=== PATIENT | female | born 1980 | race African-American/Black ===

== ENCOUNTER 2021-10-20 08:33 | Emergency (ER) | payer OTHER ==
[~2021-10-20] VITALS: Ht 165.1 cm; Wt 95.8 kg
[2021-10-20] MEDS ORDERED: IV NORMAL SALINE 1000ML BAG 1,000 ML IV ONE (09:30)
[2021-10-20] MEDS ORDERED: ONDANSETRON PF 4 MG/2 ML VIAL. IVP ONE (09:30)
[2021-10-20] MEDS ORDERED: fentaNYL PF VIAL 100 MCG/2 ML VIAL IVP ONE (09:30)
--- NOTE | 2021-10-20 09:54 | PHYS DOC ---
Past Medical History Past Medical History: No Pertinent History Past Surgical History: Tubal ligation Additional Past Surgical Histo: BACK SRGERY Alcohol Use: None Drug Use: None General Adult EDM: Chief Complaint: ABDOMINAL PAIN HPI: HPI: Patient is a 41-year-old female that presents today with lower abdominal pain. Patient states the pain has been ongoing for approximately 1 month, patient states that she had not had a period in over 12 years and starting September 142021 she had a 5-day long menstrual cycle, and since that time she has had lower abdominal pain and a sensation that something is coming out of her vagina. Patient denies any chances states that her tubes are tied and she has not had any sexual contact in quite some time, she states she has not seen a BUSINESS OBJECTS for a number of years and she does not know why she has not had a period for 12 years. Patient is a 4 para 5. Patient does state that she has nausea with the symptoms and she is also had some diarrhea as well. Patient states her first menstrual cycle was at age 14. Review of Systems: Review of Systems: Constitutional: Denies fever or chills. [] Eyes: Denies change in visual acuity. [] HENT: Denies nasal congestion or sore throat. [] Respiratory: Denies cough or shortness of breath. [] Cardiovascular: Denies chest pain or edema. [] GI/BUSINESS OBJECTS: abdominal pain, nausea, diarrhea. Denies vaginal bleeding, vaginal discharge [] : Denies dysuria. [] Musculoskeletal: Denies back pain or joint pain. [] Integument: Denies rash. [] Neurologic: Denies headache, focal weakness or sensory changes. [] Endocrine: Denies polyuria or polydipsia. [] Lymphatic: Denies swollen glands. [] Psychiatric: Denies depression or anxiety. [] Heart Score: C/O Chest Pain: No Risk Factors: Risk Factors: DM, Current or recent (<one month) smoker, HTN, HLP, family history of CAD, obesity. Risk Scores: Score 0 - 3: 2.5% MACE over next 6 weeks - Discharge Home Score 4 - 6: 20.3% MACE over next 6 weeks - Admit for Clinical Observation Score 7 - 10: 72.7% MACE over next 6 weeks - Early Invasive Strategies Current Medications: Current Medications Medications (Trade) Dose Ordered Sig/Blade Start Time Stop Time Status Last Admin Dose Admin Fentanyl Citrate (Fentanyl 2ml Vial) 50 mcg 1X ONCE 10/20/21 09:30 10/20/21 09:42 DC Ondansetron HCl (Zofran) 4 mg 1X ONCE 10/20/21 09:30 10/20/21 09:42 DC Sodium Chloride 1,000 ml @ 999 mls/hr 1X ONCE 10/20/21 09:30 10/20/21 10:30 Allergies: Allergies: Allergies Coded Allergies Type Severity Reaction Last Updated Verified No Known Drug Allergies 10/20/21 No Physical Exam: PE: Constitutional: Well developed, well nourished, no acute distress, non-toxic appearance. [] HENT: Normocephalic, atraumatic, bilateral external ears normal, oropharynx moist, no oral exudates, nose normal. [] Eyes: PERRLA, EOMI, conjunctiva normal, no discharge. [] Neck: Normal range of motion, no tenderness, supple, no stridor. [] Cardiovascular:Heart rate regular rhythm, no murmur [] Lungs & Thorax: Bilateral breath sounds clear to auscultation [] Abdomen: Bowel sounds normal, soft, no masses, no pulsatile masses, tenderness with lower abdominal[] Skin: Warm, dry, no erythema, no rash. [] Back: No tenderness, no CVA tenderness. [] Extremities: No tenderness, no cyanosis, no clubbing, ROM intact, no edema. [] Neurologic: Alert and oriented X 3, normal motor function, normal sensory function, no focal deficits noted. [] Psychologic: Affect normal, judgement normal, mood normal. [] Current Patient Data: Labs: Laboratory Tests Test 10/20/21 09:43 10/20/21 09:49 10/20/21 09:55 Urine Collection Type Void Urine Color (Auto) Light yellow Urine Turbidity Clear Urine pH (Auto) 7.0 Urine Specific [place] 1.022 Urine Protein (Auto) Negative mg/dL Urine Glucose (Auto)(UA) Negative mg/dL Urine Ketones (Auto) Negative mg/dL Urine Blood (Auto) Negative Urine Nitrite Negative Urine Bilirubin (Auto) Negative Urine Urobilinogen (Auto) Normal mg/dL Urine Leukocyte Esterase (Auto) Negative Urine RBC Rare /HPF Urine WBC Occ /HPF Urine Squamous Epithelial Cells Mod /LPF Urine Bacteria Few /HPF Bedside Urine HCG, Qualitative Hcg negative White Blood Count 9.6 x10^3/uL Red Blood Count 4.67 x10^6/uL Hemoglobin 14.2 g/dL Hematocrit 42.1 % Mean Corpuscular Volume 90 fL Mean Corpuscular Hemoglobin 30 pg Mean Corpuscular Hemoglobin Concent 34 g/dL Red Cell Distribution Width 15.4 % Platelet Count 339 x10^3/uL Neutrophils (%) (Auto) 62 % Lymphocytes (%) (Auto) 29 % Monocytes (%) (Auto) 6 % Eosinophils (%) (Auto) 2 % Basophils (%) (Auto) 1 % Neutrophils # (Auto) 5.9 x10^3/uL Lymphocytes # (Auto) 2.8 x10^3/uL Monocytes # (Auto) 0.6 x10^3/uL Eosinophils # (Auto) 0.2 x10^3/uL Basophils # (Auto) 0.1 x10^3/uL Sodium Level 138 mmol/L Potassium Level 4.3 mmol/L Chloride Level 102 mmol/L Carbon Dioxide Level 27 mmol/L Anion Gap 9 Blood Urea Nitrogen 8 mg/dL Creatinine 1.0 mg/dL Estimated GFR (Cockcroft-Gault) 73.9 BUN/Creatinine Ratio 8 Glucose Level 81 mg/dL Calcium Level 8.9 mg/dL Total Bilirubin 0.3 mg/dL Aspartate Amino Transf (AST/SGOT) 19 U/L Alanine Aminotransferase (ALT/SGPT) 37 U/L Alkaline Phosphatase 100 U/L Total Protein 7.1 g/dL Albumin 3.5 g/dL Albumin/Globulin Ratio 1.0 Lipase 108 U/L Current Medications Medications (Trade) Dose Ordered Sig/Blade Route PRN Reason Start Time Stop Time Status Last Admin Dose Admin Sodium Chloride 1,000 ml @ 999 mls/hr 1X ONCE IV 10/20/21 09:30 10/20/21 10:30 DC 10/20/21 10:01 Fentanyl Citrate (Fentanyl 2ml Vial) 50 mcg 1X ONCE IVP 10/20/21 09:30 10/20/21 09:42 DC 10/20/21 10:05 Ondansetron HCl (Zofran) 4 mg 1X ONCE IVP 10/20/21 09:30 10/20/21 09:42 DC 10/20/21 10:02 Iohexol (Omnipaque 300 Mg/ml) 75 ml 1X ONCE IV 10/20/21 10:30 10/20/21 10:31 DC 10/20/21 10:30 Morphine Sulfate (Morphine Sulfate) 4 mg 1X ONCE IVP 10/20/21 11:15 10/20/21 11:16 DC 10/20/21 11:10 Ketorolac Tromethamine (Toradol 15mg Vial) 15 mg 1X ONCE IVP 10/20/21 11:30 10/20/21 11:31 DC Vital Signs: Vital Signs Date Time Temp Pulse Resp B/P (MAP) Pulse Ox O2 Delivery O2 Flow Rate FiO2 10/20/21 09:05 97.8 85 18 128/87 (101) 100 Room Air 97.8 EKG: EKG: [] Radiology/Procedures: Radiology/Procedures: REASON: abdominal pain and cramping PROCEDURE: CT ABD PELV W/ IV CONTRST ONLY EXAM: CT Abdomen and Pelvis with IV contrast CLINICAL HISTORY: abdominal pain and cramping COMPARISON: none TECHNIQUE: Helical CT of the abdomen and pelvis was performed following the administration of intravenous contrast. Axial, coronal and sagittal reformatted images were generated. PQRS compliance statement - One or more of the following individualized dose reduction techniques were utilized for this study: 1. Automated exposure control 2. Adjustment of the mA and/or kV according to patient size 3. Use of iterative reconstruction technique FINDINGS: Lower Chest: Linear opacities middle lobe and lower lobes likely scarring/atelectasis. Abdomen and Pelvis: Hepatic hypoattenuation likely fatty liver. No focal liver lesion. Gallbladder is normal. No biliary ductal dilatation. Pancreas, spleen and adrenal glands are unremarkable. Symmetric nephrograms. No focal renal lesion. No hydronephrosis. No hydroureter. Bladder is grossly unremarkable. Uterus is grossly unremarkable. Right adnexal cystic structure likely follicle, measures 2.7 cm. Appendix is normal. Mild to moderate colonic stool content is seen. No small or large bowel dilatation. No abdominal or pelvic ascites. No abdominal or pelvic lymphadenopathy. Intermittent atherosclerotic calcifications of the aorta are seen. Bones: Posterolateral and interbody fusion L5-S1. No aggressive osseous lesion is seen. IMPRESSION: 1. Hepatic hypoattenuation with fatty liver. 2. No bowel obstruction. 3. Appendix is normal. Electronically signed by: Theo Yeung MD (10/20/2021 11:52 AM) [id number] [] Course & Med Decision Making: Course & Med Decision Making Pertinent Labs and Imaging studies reviewed. (See chart for details) [id number] spoke to Mary Jaimes patient's primary care physician regarding patient's evaluation here in the emergency department they state that patient has a history of drug-seeking behavior and that she has been seen in the clinic for her abdominal pain and back pain in the past. They will note this visit in their chart and will speak to patient at a later date for evaluation and treatment of this issue. 1235 reviewed radiological and laboratory results with patient did inform her there was no acute findings today found. Patient is to follow-up with her CIRCULATOR or her primary care physician for further evaluation and management of the sensation of her uterus falling out it may be related to ligaments and tendons that have been stretched during her pregnancies. Patient also states that she has medications at home for pain, and nausea and that she will need to not need any prescriptions today. Patient is encouraged to follow-up as soon as possible with her primary care for further evaluation and management of her abdominal pain. Patient verbalized understanding of this and agreeable to the plan of care. Andrez Disclaimer: Andrez Disclaimer: This electronic medical record was generated, in whole or in part, using a voice recognition dictation system. Departure Departure Impression: Primary Impression: Abdominal pain Qualified Codes: R10.30 - Lower abdominal pain, unspecified Disposition: HOME / SELF CARE / HOMELESS Condition: STABLE Patient Instructions: Abdominal Pain Additional Instructions: Take your pain medication that you have at home as needed for pain in your abdomen Take your antinausea medication that you have at home for any nausea that you m ay be experiencing Follow-up with your primary care physician as soon as possible for further evaluation and management of your pain Return to the emergency department should you develop a fever, or your pain localizes to the right lower quadrant. OPHELIA [employer]EN [employer] REPRESENTATIVE Oct 20, 2021 09:54
[2021-10-20 10:19] LABS: BACTERIA,URINE FEW /HPF (0-FEW); RBC,URINE RARE /HPF (0-2); WBC,URINE OCC /HPF (0-4)
[2021-10-20 10:25] LABS: BASO # 0.1 x10^3/uL (0.0-0.2); BASO % 1 % (0-3); EOS # 0.2 x10^3/uL (0.0-0.7); EOS % 2 % (0-3); HEMATOCRIT 42.1 % (36.0-47.0); HEMOGLOBIN 14.2 g/dL (12.0-15.5); LYMPH # 2.8 x10^3/uL (1.0-4.8); LYMPH % 29 % (24-48); MEAN CORPUSCULAR HEMOGLOBIN 30 pg (25-35); MEAN CORPUSCULAR HGB CONC 34 g/dL (31-37); MEAN CORPUSCULAR VOLUME 90 fL (79-100); MONO # 0.6 x10^3/uL (0.0-1.1); MONO % 6 % (0-9); NEUT # 5.9 x10^3/uL (1.8-7.7); NEUT % 62 % (31-73); PLATELET COUNT 339 x10^3/uL (140-400); RED BLOOD COUNT 4.67 x10^6/uL (3.50-5.40); RED CELL DISTRIBUTION WIDTH 15.4 % (11.5-14.5); WHITE BLOOD COUNT 9.6 x10^3/uL (4.0-11.0)
[2021-10-20] MEDS ORDERED: IOHEXOL 300 MG/ML 100ML VIAL. IV ONE (10:30)
[2021-10-20 10:41] LABS: CALCIUM 8.9 mg/dL (8.5-10.1); GFR 73.9; POTASSIUM 4.3 mmol/L (3.5-5.1)
[2021-10-20 10:47] LABS: ALBUMIN 3.5 g/dL (3.4-5.0); TOTAL BILIRUBIN 0.3 mg/dL (0.2-1.0); TOTAL PROTEIN 7.1 g/dL (6.4-8.2)
[2021-10-20] MEDS ORDERED: MORPHINE SULFATE 4 MG/ML INJ. IVP ONE (11:15)
[2021-10-20] MEDS ORDERED: KETOROLAC 15 MG/ML VIAL. IVP ONE (11:30)
--- NOTE | 2021-10-20 11:55 | RAD ---
EXAM: CT Abdomen and Pelvis with IV contrast CLINICAL HISTORY: abdominal pain and cramping COMPARISON: none TECHNIQUE: Helical CT of the abdomen and pelvis was performed following the administration of intrave nous contrast. Axial, coronal and sagittal reformatted images were generated. PQRS compliance statement - One or more of the following individualized dose reduction techniques wer e utilized for this study: 1. Automated exposure control 2. Adjustment of the mA and/or kV according to patient size 3. Use of iterative reconstruction technique FINDINGS: Lower Chest: Linear opacities middle lobe and lower lobes likely scarring/atelectasis. Abdomen and Pelvis: Hepatic hypoattenuation likely fatty liver. No focal liver lesion. Gallbladder is normal. No biliary ductal dilatation. Pancreas, spleen and adrenal glands are unremarkable. Symmetric nephrograms. No fo angelo renal lesion. No hydronephrosis. No hydroureter. Bladder is grossly unremarkable. Uterus is grossly unremarkable. Right adnexal cystic structure likely follicle, measures 2.7 cm. Appendix is normal. Mild to moderate colonic stool content is seen. No small or large bowel dilatatio n. No abdominal or pelvic ascites. No abdominal or pelvic lymphadenopathy. Intermittent atherosclerotic calcifications of the aorta are seen. Bones: Posterolateral and interbody fusion L5-S1. No aggressive osseous lesion is seen. IMPRESSION: 1. Hepatic hypoattenuation with fatty liver. 2. No bowel obstruction. 3. Appendix is normal. Electronically signed by: Theo Yeung MD (10/20/2021 11:52 AM) [id number]
[2021-10-20 12:12] VITALS: BP 127/85
== END 2021-10-20 13:19 | disposition home or self-care (01) ==
LOC: ER 08:33
DX: R10.30 Lower abdominal pain, unspecified (principal); R11.0 Nausea; R19.7 Diarrhea, unspecified; Z98.51 Tubal ligation status
CPT/HCPCS: 36415; 80053; 81001; 81025; 83690; 85025; 96361; 96374; 96375; 99285; J1885; J2270; J2405; J3010; J7030; Q9967